=== PATIENT | male | born 1950 | race Caucasian/White ===

== ENCOUNTER → 2018-11-17 | Outpatient (CLI) | payer OTHER ==
[~2018-11-17] MED LIST: ASPI81EC; ATOR10; Lisinopril2.5 MG; OMEP10ER; Vistaril50 MG PO
[2018-11-18 14:31] LABS: Stool Occult Bld Immuno 1 Negative (NEGATIVE); Stool Occult Bld Immuno 2 Negative (NEGATIVE); Stool Occult Bld Immuno 3 Negative (NEGATIVE)
== END | disposition home or self-care (01) ==
LOC: LAB EV 06:48
PROVIDERS: Family Medicine
DX: D64.9 Anemia, unspecified (principal)
CPT/HCPCS: 82274

== ENCOUNTER 2019-04-08 07:59 | Day surgery (SDC) | payer OTHER ==
[~2019-04-08] VITALS: Ht 188 cm; Wt 84.7 kg
--- NOTE | 2019-04-08 08:49 | NUR ---
04/08/19 0849 Frida Franz CALL LIGHT WITHIN REACH REACH
== END 2019-04-08 10:18 | disposition home or self-care (01) ==
LOC: ORSCSDS 07:59
PROVIDERS: Ophthalmology
PROC: 08RK3JZ Replacement of Left Lens with Synthetic Substitute, Percutaneous Approach (ICD-10-PCS; principal; 2019-04-08 09:30)
DX: H25.12 Age-related nuclear cataract, left eye (principal); H21.81 Floppy iris syndrome; I10 Essential (primary) hypertension; J44.9 Chronic obstructive pulmonary disease, unspecified; Z87.891 Personal history of nicotine dependence; Z79.82 Long term (current) use of aspirin; Z79.899 Other long term (current) drug therapy
CPT/HCPCS: J2001; J2250; J3301; J7040; J7120; V2632

== ENCOUNTER → 2021-10-24 | Outpatient (CLI) | payer OTHER ==
[2021-10-26 11:23] LABS: Stool Occult Bld Immuno 1 Negative (NEGATIVE)
== END | disposition home or self-care (01) ==
LOC: LAB SHORT 11:33
PROVIDERS: Family Medicine
DX: Z12.11 Encounter for screening for malignant neoplasm of colon (principal)
CPT/HCPCS: G0328

== ENCOUNTER 2023-05-20 10:22 | Inpatient (IN) | payer OTHER ==
[~2023-05-20] VITALS: Ht 185.4 cm; Wt 79.4 kg
[2023-05-20] VITALS (17 sets, daily range): BP systolic 126–146; BP diastolic 63–96
[~2023-05-20 10:22] MED LIST changes: -ATOR10; +ATOR10 PO; -OMEP10ER; +OMEP20ER PO
[2023-05-20 10:51] LABS: BASOPHILS ABSOLUTE AUTO 0.07 K/mm3 (0.00-0.23); IMMATURE GRAN ABSOLUTE AUTO 0.04 K/mm3 (0.00-0.10); IMMATURE GRAN PERCENT AUTO 1 % (0-1)
[2023-05-20 11:02] LABS: Source, Urine Clean Catch
[2023-05-20 11:03] LABS: International Normalized Ratio 0.97; Prothrombin Time Results 10.2 Sec (9.7-11.5)
[2023-05-20 11:05] LABS: BASOPHILS PERCENT AUTO 1 % (0-2); EOSINOPHILS PERCENT AUTO 8 % (0-6); Hematocrit 32.1 % (37.0-53.0); Hemoglobin 11.2 g/dL (13.5-17.5); LYMPHOCYTES ABSOLUTE AUTO 2.78 K/mm3 (0.84-5.20); LYMPHOCYTES PERCENT AUTO 34 % (21-46); MONOCYTES ABSOLUTE AUTO 0.83 K/mm3 (0.16-1.47); MONOCYTES PERCENT AUTO 10 % (4-13); Mean Corpuscular HGB 32.7 pg (26.0-34.0); Mean Corpuscular HGB Conc 34.9 g/dL (31.5-36.5); Mean Corpuscular Volume 94 fL (80-100); NEUTROPHILS ABSOLUTE AUTO 3.89 K/mm3 (1.96-9.15); NEUTROPHILS PERCENT AUTO 47 % (41-73); Platelet Count 270 K/mm3 (150-400); RDW Coefficient Variation 11.8 % (11.7-14.2); RDW Standard Deviation 39.7 fL (35.1-46.3); Red Blood Cell Count 3.43 M/mm3 (4.30-5.90); White Blood Cell Count 8.31 K/mm3 (4.00-11.30)
[2023-05-20 11:07] LABS: Mean Platelet Volume 9.9 fL (9.1-12.4)
[2023-05-20 11:10] LABS: Appearance, Urine Clear (Clear); Bilirubin, Urine Neg (Neg); Blood, Urine Neg (Neg); Color, Urine Yellow (P-Yellow); Glucose Qualitative, Urine Neg (Neg); Ketones, Urine Neg (Neg); Leukocyte Esterase, Urine Neg (Neg); Nitrite, Urine Neg (Neg); Protein, Urine Neg (Neg); Urobilinogen, Urine NORM (Normal)
[2023-05-20 11:14] LABS: Alanine Aminotransfer (ALT/SGP 21 U/L (12-78); Albumin, Blood 3.5 g/dL (3.4-5.0); Albumin/Globulin Ratio 1.1 (0.8-1.8); Alk Phos 51 U/L (50-136); Anion Gap 11 mmol/L (6-16); Aspartate Aminotrans (AST/SGOT 13 U/L (12-37); Bilirubin, Total 0.4 mg/dL (0.1-1.0); Blood Urea Nitrogen 22 mg/dL (8-24); CO2, Blood 21 mmol/L (21-32); Calcium, Blood 9.1 mg/dL (8.5-10.1); Chloride, Blood 110 mmol/L (98-108); Creatinine, Blood 0.92 mg/dL (0.60-1.20); Ethanol (Alcohol), Blood, Med <3 mg/dL; Globulin, Blood 3.3 g/dL (2.2-4.0); Glomerular Filtration Rate 87 (60-); Glucose, Blood 125 mg/dL (70-99); Potassium, Blood 4.3 mmol/L (3.5-5.5); Sodium, Blood 142 mmol/L (136-145); Total Protein, Blood 6.8 g/dL (6.4-8.2)
[2023-05-20 11:25] LABS: U Amphetamine Screen Not Detected; U Barbituate Screen Not Detected; U Benzodiazapine Screen Not Detected; U Buprenorphine Screen Not Detected; U Cannabinoids Screen Not Detected; U Cocaine Screen Not Detected; U Methadone Screen Not Detected; U Methamphetamine Screen Not Detected; U Opiates Screen Not Detected; U Oxycodone Screen Not Detected; U Phencyclidine Screen Not Detected; U Propoxyphene Screen Not Detected
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
--- NOTE | 2023-05-20 17:54 | NUR ---
SUMMARY ARRIVED FROM PACU VIA BED, AWAKE, A&OX4, REPORTS FEELING "SORE" ALL OVER, DENIES ANY SOB, PT HAS ECCHYMOSIS ON LOWER L EYE, L ARM W/ GAUZE AND KALLI WRAP AND IN SLING, L RADIAL PULSE STRONG AND PALPABLE, SKIN W/D, 3SEC CAP REFILL, L HIP W/ ABRASION PER TERRA C[place]TA [place]ON, ABD PAD NOTED ON SITE, C/D/I, LLE W/ KALLI WRAP, C/D/I, DENIES ANY NUMBNESS OR TINGLING, MOVES TOES, 3 SEC CAP REFILL, PT MEDICATED FOR PAIN, PT EATING DINNER, TOLERATING WELL, NO ACUTE CHANGES THIS SHIFT.
[2023-05-21 03:39] LABS: BASOPHILS ABSOLUTE AUTO 0.01 K/mm3 (0.00-0.23); BASOPHILS PERCENT AUTO 0 % (0-2); EOSINOPHILS ABSOLUTE AUTO 0.01 K/mm3 (0.00-0.68); EOSINOPHILS PERCENT AUTO 0 % (0-6); Hematocrit 26.6 % (37.0-53.0); IMMATURE GRAN ABSOLUTE AUTO 0.04 K/mm3 (0.00-0.10); IMMATURE GRAN PERCENT AUTO 0 % (0-1); LYMPHOCYTES PERCENT AUTO 8 % (21-46); MONOCYTES ABSOLUTE AUTO 0.83 K/mm3 (0.16-1.47); MONOCYTES PERCENT AUTO 9 % (4-13); Mean Corpuscular HGB 32.3 pg (26.0-34.0); Mean Corpuscular HGB Conc 33.8 g/dL (31.5-36.5); Mean Corpuscular Volume 95 fL (80-100); Mean Platelet Volume 9.5 fL (9.1-12.4); NEUTROPHILS PERCENT AUTO 83 % (41-73); Platelet Count 209 K/mm3 (150-400); RDW Coefficient Variation 11.9 % (11.7-14.2); Red Blood Cell Count 2.79 M/mm3 (4.30-5.90); White Blood Cell Count 9.69 K/mm3 (4.00-11.30)
[2023-05-21 03:52] VITALS: BP 104/57
[2023-05-21 04:05] LABS: Albumin, Blood 2.9 g/dL (3.4-5.0); Bilirubin, Total 0.4 mg/dL (0.1-1.0); Bun/Creatinine Ratio 22.1 (12.0-20.0); Creatinine, Blood 0.86 mg/dL (0.60-1.20); Globulin, Blood 2.8 g/dL (2.2-4.0); Potassium, Blood 4.2 mmol/L (3.5-5.5); Total Protein, Blood 5.7 g/dL (6.4-8.2)
--- NOTE | 2023-05-21 06:43 | NUR ---
POD 1 S/P I&D OF LUE AND LLE. PT VSS T/O NIGHT. DRESSINGS CDI. PAIN MGD W/2 PERCOCET W/REP RELIEF. PT DENIED CHANGES IN SENSATION, PULSES AND CAP REFILL WNL. PT REPOSITIONING SELF IN BED, AWAITING ORDERS FROM MD TO MOBILIZE OOB. PT JASON PO, IS VOIDING URINE W/O DIFFICULTY. IVF AND ABX CONT PER ORDERS.
[2023-05-21 07:38] VITALS: BP 114/61
[2023-05-21] MEDS ORDERED: ALBU90OI INH (11:22)
[2023-05-21] MEDS ORDERED: OCUVITE BLUE L1 EACH PO (11:23)
--- NOTE | 2023-05-21 12:29 | NUR ---
DR. CANALES AWARE OF DRAINAGE ON LLE, STATES OK TO REINFORCE DRESSING AND WILL CHANGE TOMORROW.
[2023-05-21 14:19] VITALS: BP 117/58
--- NOTE | 2023-05-21 17:52 | NUR ---
SUMMARY OOB TO CHAIR TODAY, TOLERATED WELL, PAIN MANAGED W/ PO PERCOCET, LLE DSG INTACT, ELEVATED ON PILLOW, WORKED W/ PT/OT TODAY, TOLERATED WELL, LUE DSG C/D/I, NO ACUTE CHANGES THIS SHIFT.
[2023-05-21 19:27] VITALS: BP 108/74
[2023-05-22 04:25] VITALS: BP 125/62
--- NOTE | 2023-05-22 07:28 | NUR ---
PT VSS T/O NIGHT. DRESSINGS W/SS DRNG. PT DENIED N/T, CAP REFILL WNL. PAIN MGD W/2 PERCOCET W/REP RELIEF. PT UP OOB W/BEVERLEY WALKER AND 1 ASSIST. IVF CONT PER ORDERS. PLAN FOR DRESSING CHANGE BY MD TODAY.
[2023-05-22 07:50] VITALS: BP 120/61
[2023-05-22 09:44] LABS: BASOPHILS ABSOLUTE AUTO 0.05 K/mm3 (0.00-0.23); BASOPHILS PERCENT AUTO 1 % (0-2); EOSINOPHILS ABSOLUTE AUTO 0.31 K/mm3 (0.00-0.68); EOSINOPHILS PERCENT AUTO 4 % (0-6); Hematocrit 26.5 % (37.0-53.0); IMMATURE GRAN ABSOLUTE AUTO 0.03 K/mm3 (0.00-0.10); IMMATURE GRAN PERCENT AUTO 0 % (0-1); LYMPHOCYTES ABSOLUTE AUTO 1.63 K/mm3 (0.84-5.20); LYMPHOCYTES PERCENT AUTO 18 % (21-46); MONOCYTES ABSOLUTE AUTO 1.06 K/mm3 (0.16-1.47); MONOCYTES PERCENT AUTO 12 % (4-13); Mean Corpuscular HGB 32.7 pg (26.0-34.0); Mean Corpuscular Volume 96 fL (80-100); Mean Platelet Volume 9.4 fL (9.1-12.4); NEUTROPHILS PERCENT AUTO 65 % (41-73); Platelet Count 211 K/mm3 (150-400); RDW Coefficient Variation 12.1 % (11.7-14.2); RDW Standard Deviation 42.2 fL (35.1-46.3); Red Blood Cell Count 2.75 M/mm3 (4.30-5.90); White Blood Cell Count 8.88 K/mm3 (4.00-11.30)
[2023-05-22 10:10] LABS: Albumin, Blood 2.9 g/dL (3.4-5.0); Albumin/Globulin Ratio 0.9 (0.8-1.8); Bilirubin, Total 0.5 mg/dL (0.1-1.0); Bun/Creatinine Ratio 15.2 (12.0-20.0); Calcium, Blood 8.3 mg/dL (8.5-10.1); Creatinine, Blood 0.85 mg/dL (0.60-1.20); Globulin, Blood 3.1 g/dL (2.2-4.0); Potassium, Blood 3.9 mmol/L (3.5-5.5)
--- NOTE | 2023-05-22 13:36 | NUR ---
DR. CANALES CAME BY AND CHANGED BOTH THE PATIENTS LEG AND ARM DRESSING AND ARE BOTH NOW C/D/I. PATIENT IS SITTING UP IN THE RECLINER WITH CALL LIGHT IN REACH. BOTH LEFT LEG AND LEFT ARM ARE ELEVATED ON PILLOWS. DENIES NUMBNESS OR TINGLING IN ALL EXTREMITIES. FAMILY AT BEDSIDE.
--- NOTE | 2023-05-22 15:25 | NUR ---
SHIFT SUMMARY: POD 1 I&D OF LEFT LEG AND ARM PATIENT IS A&OX4. VS ARE WNL AND IS ON RA. PAIN IS MANAGED WITH PO PERCOCET. HE HAS BOTH KALLI WRAP X2 FOR HIS LEFT ARM AND LEFT LEG THAT DR. CANALES CHANGED (SEE PRIOR NOTE) THAT ARE C/D/I. PATIENT DENIES NUMBNESS OR TINGLING. CAN MOVE ALL FINGERS AND TOES WHEN ASKED. HE IS A SBA WITH FWW AND GAIT BELT. HE IS TOLERATING PO INTAKE AND IS VOIDING. HE IS SITTING IN HIS RECLINER WITH CALL LIGHT WITHIN REACH. CALLS APPROPRIATELY. THE PLAN IS TO POSSIBLY DISCHARGE HOME WITH HOME HEALTH IF STILL APPROPRIATE AND PATIENT HAS ITEMS (SUCH A WALKER ECT.) READY FOR AT HOME. WELL CONTINUE PAIN MANAGEMENT.
[2023-05-22 15:27] VITALS: BP 102/62
[2023-05-22 19:24] VITALS: BP 119/60
--- NOTE | 2023-05-23 04:15 | NUR ---
SHIFT SUMMARY PATIENT IS AOX4, 1 SBA, GB, FWW. NWB TO LLE. DRESSING WITH KALLI WRAP TO LUE, AND LLE, C/D/I. NON-ADHERENT DRESSING PLACED TO L HIP AREA OF ROAD RASH. SS DRAINAGE NOTED ON THIS SITE. PATIENT IS MEDICATED FOR PAIN WITH 2 PERCOCET TOLERATES WELL. EATING DRINKING AND VOIDING WELL. DENIES N/T IN ALL EXT'S. VSS, WILL REPORT TO DAY RN.
[2023-05-23 05:54] LABS: Albumin, Blood 2.7 g/dL (3.4-5.0); Albumin/Globulin Ratio 0.9 (0.8-1.8); Bilirubin, Total 0.5 mg/dL (0.1-1.0); Bun/Creatinine Ratio 17.4 (12.0-20.0); Calcium, Blood 8.6 mg/dL (8.5-10.1); Creatinine, Blood 0.81 mg/dL (0.60-1.20); Total Protein, Blood 5.7 g/dL (6.4-8.2)
[2023-05-23 07:39] VITALS: BP 121/70
[2023-05-23] MEDS ORDERED: Percocet 5-3251 EACH PO (14:46)
--- NOTE | 2023-05-23 15:46 | NUR ---
DISCHARGE SUMMARY WRITTEN AND ORAL DISCHARGE INSTRUCTIONS GIVE, PT AGREEABLE TO DISCHARGE. DRESSINGS CHANGED BY ORTHO SURGEON THIS AM. WOUND CARE INSTRUCTIONS GIVEN TO PATIENT AND FAMILY FRIEND. PRESCRIPTIONS CALLED INTO [facility] AND HARD SCRIPT FOR NARCOTICS GIVEN TO PATIENT. BELONGINGS GATHERED, WHEELED PT OUT IN TRANSFER CHAIR TO FAMILY VEHICLE.
== END 2023-05-23 15:31 | disposition home health service (06) | DRG 983 ==
LOC: ER 10:22 → SURS 10:23 → ER 13:44 → SURS 16:50 → EDBEDREQ 16:51 → SURS 17:14
PROVIDERS: Family Medicine; Orthopaedic Surgery; Student in an Organized Health Care Education/Training Program; ADMIT Internal Medicine
PROC: 0QBH0ZZ Excision of Left Tibia, Open Approach (ICD-10-PCS; 2023-05-20)
PROC: 0RBM0ZZ Excision of Left Elbow Joint, Open Approach (ICD-10-PCS; principal; 2023-05-20 13:00)
DX: S51.012A Laceration without foreign body of left elbow, initial encounter (principal); S81.812A Laceration without foreign body, left lower leg, initial encounter; V49.9XXA Car occupant (driver) (passenger) injured in unspecified traffic accident, initial encounter; I10 Essential (primary) hypertension; N40.0 Benign prostatic hyperplasia without lower urinary tract symptoms; I25.10 Atherosclerotic heart disease of native coronary artery without angina pectoris; F10.11 Alcohol abuse, in remission; S00.81XA Abrasion of other part of head, initial encounter; S10.91XA Abrasion of unspecified part of neck, initial encounter; R73.03 Prediabetes; E78.5 Hyperlipidemia, unspecified; K21.9 Gastro-esophageal reflux disease without esophagitis; D53.9 Nutritional anemia, unspecified; J44.9 Chronic obstructive pulmonary disease, unspecified; Z85.46 Personal history of malignant neoplasm of prostate; Z98.890 Other specified postprocedural states; Z87.891 Personal history of nicotine dependence; Z98.42 Cataract extraction status, left eye; Z88.5 Allergy status to narcotic agent; Z79.899 Other long term (current) drug therapy; Z79.811 Long term (current) use of aromatase inhibitors; Z86.79 Personal history of other diseases of the circulatory system
CPT/HCPCS: 36415; 70450; 72125; 73070; 73090; 73590; 73701; 80053; 81003; 82550; 83690; 85025; 85610; 86850; 86900; 86901; 90471; 90714; 90715; 93005; 93010; 96374-59; 96375; 97110; 97162; 97166; 97530; 99285-25; A9270; G0378; G0480; J0690; J1100; J1170; J1650; J2270; J2405; J2704; J3010; J7030; J7120; Q9967

== ENCOUNTER → 2024-04-06 | Outpatient (CLI) | payer OTHER ==
[~2024-04-06] MED LIST changes: +ALBU90OI INH; +OCUVITE BLUE L1 EACH PO; +Percocet 5-3251 EACH PO
[2024-04-09 13:26] LABS: Stool Occult Bld Immuno 1 Negative (NEGATIVE); Stool Occult Bld Immuno 2 Negative (NEGATIVE); Stool Occult Bld Immuno 3 Negative (NEGATIVE)
== END | disposition home or self-care (01) ==
LOC: LAB 15:12 → LAB SHORT 15:12
PROVIDERS: Family Medicine
DX: Z12.11 Encounter for screening for malignant neoplasm of colon (principal)
CPT/HCPCS: G0328